=== PATIENT | male | born 1935 | race Caucasian/White ===

== ENCOUNTER 2020-02-22 22:15 | Emergency (ER) | payer MEDICARE, SELFPAY ==
[2020-02-22 22:16] VITALS: BP 177/94; PULSE 83; RESP 20; TEMP 36.2; O2SAT 93
--- NOTE | 2020-02-22 22:28 | ED.EAR ---
HPI - Ear Problem General Chief complaint: Ear Stated complaint: hearing aid sponge stuck in right ear Time Seen by Provider: 02/22/20 22:17 Source: patient Mode of arrival: ambulatory Limitations: no limitations History of Present Illness HPI Narrative: 84-year-old with a history of hypertension diabetes, hearing problems here with the complaints of part of the hearing aid stuck in his right ear. Patient states that he was trying to remove his hearing aid in the tip of the ear hearing aid got stuck in the right ear. He denies any other complaints. MD Complaint: foreign body (right) Location: right ear Duration: constant Discharge from ear: Reports no Related Data Home Medications Medication Instructions Recorded Confirmed atorvastatin 02/22/20 clopidogrel 02/22/20 fluticasone propion-salmeterol INHALATION 02/22/20 [Wixela Inhub] furosemide 02/22/20 isosorbide mononitrate mg PO 02/22/20 lisinopril 02/22/20 metformin mg 02/22/20 metoprolol tartrate 02/22/20 potassium chloride meq PO 02/22/20 tamsulosin mg PO 02/22/20 Allergies Allergy/AdvReac Type Severity Reaction Status Date / Time adhesive Allergy Unknown BLISTERS Unverified 02/22/20 22:32 Review of Systems Review of Systems: All systems reviewed & are unremarkable except as noted in HPI and below Constitutional: Constitutional: Reports no additional constitutional complaints Eyes: Eyes: Reports no additional eye complaints ENT: Reports as per HPI Cardiovascular: Cardiovascular: Reports no additional cardiovascular complaints Respiratory: Respiratory: Reports as per HPI and Reports no additional respiratory complaints Exam Narrative: Exam Narrative: GENERAL: Well-appearing, well-nourished, and in no acute distress. HEAD: Normocephalic, atraumatic. EYES: PERRLA and EOMI. ENT: FB in the right ear NECK: Supple. CHEST: Clear to auscultation. No respiratory distress. HEART: Regular rate and rhythm. . EXTREMITIES: Normal range of motion. No edema. SKIN: Warm, dry, no rash. NEURO: No focal deficits. Alert and oriented x3. PSYCH: Normal mood and affect. Course Vital Signs Vital signs: Vital Signs Temperature 36.2 C L 02/22/20 22:16 Pulse Rate 83 02/22/20 22:16 Respiratory Rate 20 02/22/20 22:16 Blood Pressure 177/94 H 02/22/20 22:16 Pulse Oximetry 93 02/22/20 22:16 Temperature 36.2 C L 02/22/20 22:16 Pulse Rate 83 02/22/20 22:16 Respiratory Rate 20 02/22/20 22:16 Blood Pressure 177/94 H 02/22/20 22:16 Pulse Oximetry 93 02/22/20 22:16 Procedures FB Removal Ear Foreign Body #1: Foreign Body Removal Date: 02/22/20 Foreign Body Removal Time: 22:34 Location: ear canal (R) Foreign Body Suspected: other plastic TM intact pre-procedure: yes Foreign Body Removed: yes Tympanic Membrane Intact Post Procedure: Yes Patient Tolerated Procedure: well Complications: none Medical Decision Making Vital Signs Vital Signs: Vital Signs Temperature 36.2 C L 02/22/20 22:16 Pulse Rate 83 02/22/20 22:16 Respiratory Rate 20 02/22/20 22:16 Blood Pressure 177/94 H 02/22/20 22:16 Pulse Oximetry 93 02/22/20 22:16 Temperature 36.2 C L 02/22/20 22:16 Pulse Rate 83 02/22/20 22:16 Respiratory Rate 20 02/22/20 22:16 Blood Pressure 177/94 H 02/22/20 22:16 Pulse Oximetry 93 02/22/20 22:16 Discharge Plan Discharge Clinical Impression: Foreign body in right ear Patient Disposition: Home, Self-Care Condition: Stable Instructions: Antibiotic Form, Ear Foreign Body (ED) Prescriptions: No Action metformin 500 mg tablet RF: 0 fluticasone propion-salmeterol [Wixela Inhub] 250-50 mcg/dose blister with device INHALATION RF: 0 atorvastatin 20 mg tablet RF: 0 lisinopril 20 mg tablet RF: 0 isosorbide mononitrate 30 mg tablet extended release 24 hr PO RF: 0 clopidogrel
== END 2020-02-22 22:50 | disposition home or self-care (01) ==
PROVIDERS: Emergency Provider Family Medicine; PCP Internal Medicine
DX: T16.1XXA Foreign body in right ear, initial encounter (principal); Z79.84 Long term (current) use of oral hypoglycemic drugs
CPT/HCPCS: 69200; 99282